=== PATIENT | female | born 1980 | race Caucasian/White ===

== ENCOUNTER 2016-09-15 04:41 | Inpatient (IN) | payer OTHER ==
[~2016-09-15] VITALS: Ht 165.1 cm; Wt 79.4 kg
[~2016-09-15 04:41] MED LIST: PRENATAL VITS.
[2016-09-15 05:22] LABS: GLUCOSE,POINT OF CARE 74 MG/DL (70-110)
[2016-09-15] MEDS ORDERED: RINGERS SOLUTION,LACTATED 1,000 ML IV PRN (05:23)
[2016-09-15] MEDS ORDERED: OXYTOCIN 30 UNITS/LACT RINGERS 500 ML IV ONE (05:23)
[2016-09-15] MEDS ORDERED: METOCLOPRAMIDE HCL 5 MG/ML 2 ML VIAL IVP PRN (05:30)
[2016-09-15] MEDS ORDERED: FentaNYL CITRATE-PF 100 MCG/2 ML VIAL IVP PRN (05:30)
[2016-09-15] MEDS ORDERED: CITRIC ACID/SODIUM CITRATE 30 ML SOLUTION UDCUP PO PRN (05:30)
[2016-09-15 06:01] LABS: BASOPHILS % (AUTO) 0.8 % (0.0-2.0); EOSINOPHILS % (AUTO) 0.6 % (1.0-6.0); HEMOGLOBIN 12.6 g/dL (12.0-16.0); LYMPHOCYTES # (AUTO) 1.9 K/uL (1.0-4.8); LYMPHOCYTES % (AUTO) 15.8 % (22.0-44.0); MEAN CORPUSCULAR HEMOGLOBIN 29.3 pg (26.0-34.0); MEAN CORPUSCULAR HGB CONC 32.4 G/dL (31.0-37.0); MEAN CORPUSCULAR VOLUME 90 fL (80-100); MONOCYTES # (AUTO) 0.6 K/uL (0.1-1.0); MONOCYTES % (AUTO) 5.4 % (2.0-9.0); NEUTROPHILS # (AUTO) 9.2 K/uL (1.8-7.7); NEUTROPHILS % (AUTO) 77.4 % (40.0-70.0); RED BLOOD CELL COUNT(AUTO) 4.32 MIL/uL (4.00-5.20); RED CELL DISTRIBUTION WIDTH 15.1 % (11.5-14.5); WHITE BLOOD COUNT (AUTO) 11.9 K/uL (4.5-11.0)
[2016-09-15] MEDS ORDERED: ONDANSETRON HCL 4 MG/2 ML VIAL IVP PRN (06:15)
[2016-09-15] MEDS ORDERED: DiphenhydrAMINE HCL 50 MG/ML VIAL IVP PRN (06:15)
[2016-09-15 07:33] VITALS: BP 126/65
[2016-09-15] MEDS ORDERED: LIDOCAINE HCL/PF 1% 30 ML VIAL ONE (08:11)
[2016-09-15] MEDS ORDERED: HYDROmorphone 2 MG/ML SYRINGE ONE (08:37)
[2016-09-15] MEDS: RINGERS SOLUTION,LACTATED 1,000 ML IV SCH ×2 (09:43→13:23)
[2016-09-15] MEDS ORDERED: OXYTOCIN 20 UNITS in RINGERS SOLUTION,LACTATED 1,000 ML IV ONE (10:55)
[2016-09-15] MEDS ORDERED: GLYCERIN/WITCH HAZEL LEAF 40 PADS JAR TP PRN (11:00)
[2016-09-15] MEDS ORDERED: BENZOCAINE 20%/MENTHOL 56 GM SPRAY CANISTER TP PRN (11:00)
[2016-09-15] MEDS ORDERED: LANOLIN 7 GM OINTMENT TP PRN (11:00)
[2016-09-15] MEDS ORDERED: ACETAMINOPHEN/CODEINE 300-30 MG TABLET PO PRN (11:00)
[2016-09-15] MEDS: IBUPROFEN 600 MG TABLET PO SCH ×3 (11:06→23:47)
[2016-09-15] MEDS: MAGNESIUM HYDROXIDE SUSPENSION 30 ML UDCUP PO SCH (20:59)
[2016-09-15] MEDS: SENNA/DOCUSATE SODIUM 187-50 MG TABLET PO SCH (20:59)
[2016-09-16] MEDS: IBUPROFEN 600 MG TABLET PO SCH (06:03)
[2016-09-16] MEDS ORDERED: DSS100 PO (08:43)
[2016-09-16] MEDS ORDERED: IBUP-1547 PO (08:43)
[2016-09-16] MEDS: SENNA/DOCUSATE SODIUM 187-50 MG TABLET PO SCH (08:58)
[2016-09-16] MEDS: MAGNESIUM HYDROXIDE SUSPENSION 30 ML UDCUP PO SCH (08:58)
== END 2016-09-16 11:00 | disposition home or self-care (01) | DRG 775 ==
LOC: OBSVTOIN 04:41 → 4S 04:41
PROVIDERS: ADMIT Obstetrics & Gynecology; ATTEND Obstetrics & Gynecology
PROC: 10E0XZZ Delivery of Products of Conception, External Approach (ICD-10-PCS; principal; 2016-09-15)
PROC: 0KQM0ZZ Repair Perineum Muscle, Open Approach (ICD-10-PCS; 2016-09-15)
PROC: 3E0S3CZ (ICD-10-PCS; 2016-09-15)
PROC: 00HU33Z Insertion of Infusion Device into Spinal Canal, Percutaneous Approach (ICD-10-PCS; 2016-09-15)
DX: O77.0 Labor and delivery complicated by meconium in amniotic fluid (principal); O70.1 Second degree perineal laceration during delivery; O09.523 Supervision of elderly multigravida, third trimester; Z37.0 Single live birth; Z3A.38 38 weeks gestation of pregnancy
CPT/HCPCS: 82962; J1170; J2590; J3010; J3490; J7120